=== PATIENT | male | born 1965 | race Caucasian/White ===

== ENCOUNTER 2016-09-12 19:57 | Inpatient (IN) | payer OTHER | END 2016-09-12 23:33 | disposition EXP | DRG 700 | LOC: N03B 19:57 → UNDOADMIN 19:57 → N03B 21:41 | DX: Z52.4 Kidney donor (principal) | CPT/HCPCS: 80048; 80053; 80076; 81001; 82150; 82977; 83036; 83690; 85025; 85610; 85730; 87040; 87086; 94003; C9113; J0295; J0360; J0690; J1644; J1980; J2060; J2270; J3010; J3230; J3411; J3480; J7050 ==